=== PATIENT | male | born 1995 | race Caucasian/White ===

== ENCOUNTER 2017-06-08 07:59 | Outpatient (CLI) | payer OTHER | END 2017-06-08 08:17 | disposition home or self-care (01) | LOC: LAB 07:59 | DX: E55.9 Vitamin D deficiency, unspecified (principal); E10.9 Type 1 diabetes mellitus without complications ==

== ENCOUNTER 2017-06-16 15:22 | Outpatient (CLI) | payer OTHER | END 2017-06-16 15:37 | disposition home or self-care (01) | LOC: LAB 15:22 | DX: D75.1 Secondary polycythemia (principal); R70.1 Abnormal plasma viscosity; R71.8 Other abnormality of red blood cells; E10.9 Type 1 diabetes mellitus without complications; D50.8 Other iron deficiency anemias; D51.8 Other vitamin B12 deficiency anemias; I10 Essential (primary) hypertension; E55.9 Vitamin D deficiency, unspecified; K90.89 Other intestinal malabsorption; E03.8 Other specified hypothyroidism; E06.3 Autoimmune thyroiditis ==

== ENCOUNTER → 2017-11-26 08:19 | Outpatient (CLI) | payer OTHER | END | disposition home or self-care (01) | LOC: LAB 08:19 | DX: D75.1 Secondary polycythemia (principal); R70.1 Abnormal plasma viscosity; R71.8 Other abnormality of red blood cells; E10.8 Type 1 diabetes mellitus with unspecified complications; D50.8 Other iron deficiency anemias; D51.8 Other vitamin B12 deficiency anemias; I10 Essential (primary) hypertension; E03.8 Other specified hypothyroidism; D51.1 Vitamin B12 deficiency anemia due to selective vitamin B12 malabsorption with proteinuria; D51.0 Vitamin B12 deficiency anemia due to intrinsic factor deficiency ==